=== PATIENT | male | born 1995 | race Caucasian/White ===

== ENCOUNTER 2017-12-23 20:30 | Emergency (ER) | payer MEDICAID ==
[~2017-12-23] VITALS: Ht 188 cm; Wt 108.0 kg
[2017-12-23 20:42] VITALS: BP_SYST 132
[2017-12-23] MEDS ORDERED: FAMOTIDINE 20 MG TABLET PO ONE (21:15)
[2017-12-23] MEDS ORDERED: DIPHENHYDRAMINE HCL 25 MG CAPSULE PO ONE (21:15)
[2017-12-23 21:50] VITALS: BP_SYST 125
== END 2017-12-23 21:50 | disposition home or self-care (01) ==
LOC: SED 20:30
DX: L50.9 Urticaria, unspecified (principal); L29.9 Pruritus, unspecified; F17.200 Nicotine dependence, unspecified, uncomplicated; J45.909 Unspecified asthma, uncomplicated
CPT/HCPCS: 99283; Q0163

== ENCOUNTER 2018-02-02 23:00 | Emergency (ER) | payer MEDICAID ==
[~2018-02-02] VITALS: Ht 188 cm; Wt 128.4 kg
[2018-02-02 23:25] VITALS: BP_SYST 132
[2018-02-03] MEDS ORDERED: NACL 0.9% 1,000 ML IV ONE (00:38)
[2018-02-03] MEDS ORDERED: KETOROLAC TROMETHAMINE 30 MG VIAL IVP ONE (00:45)
[2018-02-03] MEDS ORDERED: ONDANSETRON HCL 4 MG/2 ML VIAL IVP ONE (00:45)
[2018-02-03 01:14] LABS: CALCIUM 9.2 mg/dL (8.4-11.0); CREATININE 1.05 mg/dL (0.55-1.30); POTASSIUM 3.7 mmol/L (3.5-5.1)
[2018-02-03 01:17] LABS: BASOPHILS # (AUTO) 0.1 K/uL (0.0-0.2); BASOPHILS % (AUTO) 1.1 % (0.0-2.0); EOSINOPHILS # (AUTO) 0.1 K/uL (0.0-0.4); EOSINOPHILS % (AUTO) 0.7 % (0.0-4.0); HEMATOCRIT 47.6 % (36-54); HEMOGLOBIN 15.5 g/dL (14.0-18.0); LYMPHOCYTES # (AUTO) 1.4 K/uL (1.0-5.5); LYMPHOCYTES % (AUTO) 14.1 % (20.5-51.5); MEAN CORPUSCULAR HEMOGLOBIN 28 pg (27-31); MEAN CORPUSCULAR HGB CONC 33 % (32-36); MEAN CORPUSCULAR VOLUME 85 fL (79.0-98.0); MONOCYTES # (AUTO) 0.6 K/uL (0.0-1.0); MONOCYTES % (AUTO) 5.7 % (1.7-9.3); NEUTROPHILS # (AUTO) 8.1 K/uL (1.8-7.7); NEUTROPHILS % (AUTO) 78.4 % (40.0-70.0); PLATELET COUNT (AUTO) 264 K/uL (130-430); RED BLOOD CELL COUNT(AUTO) 5.62 MIL/uL (4.2-6.2); RED CELL DISTRIBUTION WIDTH 12.3 % (9.0-15.0); WHITE BLOOD COUNT (AUTO) 10.3 K/uL (4.8-10.8)
[2018-02-03 01:18] LABS: ALBUMIN 4.3 g/dL (3.4-4.8); TOTAL BILIRUBIN 0.7 mg/dL (0.0-1.0)
[2018-02-03] MEDS ORDERED: FAMOTIDINE PF 20 MG/2 ML VIAL IVP ONE (01:30)
[2018-02-03 02:04] VITALS: BP_SYST 132
== END 2018-02-03 02:04 | disposition home or self-care (01) ==
LOC: SED 23:00
DX: T62.8X1A Toxic effect of other specified noxious substances eaten as food, accidental (unintentional), initial encounter (principal); J45.909 Unspecified asthma, uncomplicated; R03.0 Elevated blood-pressure reading, without diagnosis of hypertension; Y92.89 Other specified places as the place of occurrence of the external cause
CPT/HCPCS: 36415; 80053; 83690; 85025; 96361; 96374; 96375; 99285; J1885; J2405; J3490; J7030

== ENCOUNTER 2020-05-05 16:11 | Emergency (ER) | payer MEDICAID ==
[~2020-05-05] VITALS: Ht 188 cm; Wt 99.8 kg
[2020-05-05 16:32] VITALS: BP_SYST 153
[2020-05-05] MEDS ORDERED: LIDOCAINE 1%, 20 ML MDV 20 ML ONE (18:08)
[2020-05-05] MEDS ORDERED: BACITRACIN 1 GM OINT TP ONE (19:02)
[2020-05-05 19:14] VITALS: BP_SYST 121
== END 2020-05-05 19:14 | disposition home or self-care (01) ==
LOC: SED 16:11
DX: S71.111A Laceration without foreign body, right thigh, initial encounter (principal); W26.0XXA Contact with knife, initial encounter; Y93.89 Activity, other specified; Y92.89 Other specified places as the place of occurrence of the external cause; Y99.8 Other external cause status
CPT/HCPCS: 12002; 99282; J2001

== ENCOUNTER 2023-05-10 20:02 | Emergency (ER) | payer MEDICAID, OTHER ==
[~2023-05-10] VITALS: Ht 188 cm; Wt 104.3 kg
[2023-05-10 20:12] VITALS: BP_SYST 136; PULSE 98; RESP 18; TEMP 98.5; O2SAT 100
[2023-05-10 20:45] VITALS: BP_SYST 136; PULSE 98; RESP 18; TEMP 98.5; O2SAT 100
[2023-05-10 21:15] LABS: INFLUENZA TYPE A Negative (NEGATIVE); INFLUENZA TYPE B NEGATIVE (NEGATIVE)
[2023-05-10] MEDS ORDERED: NIRM1TAB PO (21:21)
== END 2023-05-10 21:28 | disposition home or self-care (01) ==
LOC: SED 20:02
DX: U07.1 COVID-19 (principal); R05.9 Cough, unspecified; R09.81 Nasal congestion; J45.909 Unspecified asthma, uncomplicated; Z79.899 Other long term (current) drug therapy
CPT/HCPCS: 36415; 99283

== ENCOUNTER 2023-05-28 22:56 | Emergency (ER) | payer MEDICAID ==
[~2023-05-28] VITALS: Ht 188 cm; Wt 99.8 kg
[~2023-05-28 22:56] MED LIST: NIRM1TAB PO
[2023-05-28 23:02] VITALS: BP_SYST 160; PULSE 116; RESP 17; TEMP 97.5; O2SAT 97
[2023-05-28] MEDS: IBUPROFEN 600 MG TABLET PO ONE (23:18)
[2023-05-29] MEDS ORDERED: BACITRACIN 1 GM OINT TP ONE (00:15)
[2023-05-29] MEDS: LIDOCAINE 1% 10 MG/ML, 20 ML MDV INJ ONE (00:20)
[2023-05-29] MEDS ORDERED: NAPR-690 PO (00:22)
[2023-05-29 00:30] VITALS: BP_SYST 160; PULSE 116; RESP 17; TEMP 97.5; O2SAT 97
== END 2023-05-29 00:27 | disposition home or self-care (01) ==
LOC: SED 22:56
DX: S91.201A Unspecified open wound of right great toe with damage to nail, initial encounter (principal); S99.921A Unspecified injury of right foot, initial encounter; J45.909 Unspecified asthma, uncomplicated; Z79.899 Other long term (current) drug therapy; W20.8XXA Other cause of strike by thrown, projected or falling object, initial encounter; Y93.89 Activity, other specified; Y92.89 Other specified places as the place of occurrence of the external cause; Y99.8 Other external cause status
CPT/HCPCS: 99284; J2001